=== PATIENT | male | born 1950 | race Caucasian/White ===

== ENCOUNTER → 2017-02-28 | Outpatient (CLI) | payer OTHER ==
--- NOTE | 2017-02-28 13:39 | RAD ---
PET/CT imaging from the skull through the midthigh. History: Left lower lobe lung mass Comparison: None. Technique: PET examination was performed from the skull base to the proximal thighs after intravenous administration of 12.5 mCi Fluorine [address] scan was performed for the purposes of localization and attenuation, not for primary diagnosis. Blood glucose level at time of injection was 113 mg/dl. PQRS Compliance Statement: One or more of the following individualized dose reduction techniques were utilized for this examination: 1. Automated exposure control 2. Adjustment of the mA and/or kV according to patient size 3. Use of iterative reconstruction technique Findings: Head and neck: There is physiologic activity involving the muscles of the neck on both sides. There is pharyngeal physiologic activity as well.. Chest: There is a pleural-based posterior medial left lower lobe lung mass which demonstrates a maximum SUV of 10.9. This mass measures 7.4 cm in greatest dimension. There is an ill-defined infiltrate present within the posterior lateral basal segment of the left lower lobe inferiorly which demonstrates no significant increased SUV activity. There is some atelectasis present within the lingula. There is some mild atelectasis within the right lung base. Mediastinal lymph nodes are seen but no abnormal increased metabolic activity is evident. There is a left hilar lymph node maximum SUV of 3.8. There is physiologic activity within the esophagus. Abdomen and pelvis: There is diffuse heterogeneous physiologic activity throughout the liver. There is physiologic activity within the colon. This is most prominent within the proximal ascending colon or cecum with a maximum SUV of 9.2. There is more focally prominent radiotracer activity involving the rectum with a maximum SUV is 6.9. There is a right internal iliac lymph node seen on image [address] fusion study. This demonstrates maximum SUV of 4.6. There is physiologic activity within the stomach and duodenum and small bowel. Musculoskeletal: As previously mentioned, there are multiple areas of muscle physiologic activity. However, there are multiple foci of the cervical and thoracic and lumbar spine and bilateral sacral areas and bilateral iliac bone areas of increased metabolic activity consistent with osseous metastatic disease. There is some activity around the rib cage bilaterally which could be due to intercostal muscle physiologic activity but metastatic disease cannot be excluded. Impression: Left lower lobe lung mass with left hilar lymph node. Physiologic activity seen throughout the colon. However more focally prominent radiotracer activity is seen within the proximal ascending colon/cecum and the rectum. Neoplastic disease in these areas is certainly possible and therefore recommend colonoscopy if this has not been performed recently. Right internal iliac lymph node is seen. Osseous metastatic disease.
== END | disposition home or self-care (01) ==
LOC: PETSC 08:37
PROVIDERS: ATTEND Internal Medicine
DX: R91.8 Other nonspecific abnormal finding of lung field (principal)
CPT/HCPCS: 78815; A9552